=== PATIENT | male | born 1995 | race African-American/Black ===

== ENCOUNTER 2017-01-17 05:48 | Emergency (ER) | payer MEDICAID ==
[~2017-01-17] VITALS: Ht 190.5 cm; Wt 98.0 kg
[2017-01-17 08:07] VITALS: BP 99/48
== END 2017-01-17 08:09 | disposition home or self-care (01) ==
LOC: ED 07:45
DX: S82.54XA Nondisplaced fracture of medial malleolus of right tibia, initial encounter for closed fracture (principal); R07.89 Other chest pain; J45.909 Unspecified asthma, uncomplicated; F17.210 Nicotine dependence, cigarettes, uncomplicated; X58.XXXA Exposure to other specified factors, initial encounter; Y93.89 Activity, other specified; Y92.89 Other specified places as the place of occurrence of the external cause; Y99.8 Other external cause status
CPT/HCPCS: 29515; 71010; 93005; 99284

== ENCOUNTER 2017-01-28 06:01 | Emergency (ER) | payer MEDICAID ==
[~2017-01-28] VITALS: Ht 190.5 cm; Wt 93.9 kg
[2017-01-28] MEDS ORDERED: LIDOCAINE 1%, 20ML ONE (06:28)
[2017-01-28] MEDS ORDERED: LIDOCAINE 1%, 20ML SQ ONE (06:30)
[2017-01-28 08:20] VITALS: BP 132/78
== END 2017-01-28 08:22 | disposition home or self-care (01) ==
LOC: ED 07:01
DX: S91.115A Laceration without foreign body of left lesser toe(s) without damage to nail, initial encounter (principal); L02.612 Cutaneous abscess of left foot; W22.8XXA Striking against or struck by other objects, initial encounter; Y93.89 Activity, other specified; Y92.89 Other specified places as the place of occurrence of the external cause; Y99.8 Other external cause status
CPT/HCPCS: 99283

== ENCOUNTER 2017-10-24 05:47 | Emergency (ER) | payer MEDICAID ==
[~2017-10-24] VITALS: Ht 185.4 cm; Wt 74.0 kg
[2017-10-24 05:48] VITALS: BP 122/82
== END 2017-10-24 06:04 | disposition left against medical advice (07) ==
LOC: ED 05:57
DX: Z00.00 Encounter for general adult medical examination without abnormal findings (principal); Z87.891 Personal history of nicotine dependence; F32.9 Major depressive disorder, single episode, unspecified; F43.10 Post-traumatic stress disorder, unspecified
CPT/HCPCS: 99283

== ENCOUNTER 2018-09-20 11:53 | Emergency (ER) | payer MEDICAID ==
[~2018-09-20] VITALS: Ht 190.5 cm; Wt 85.3 kg
[2018-09-20 12:19] VITALS: BP 130/67
--- NOTE | 2018-09-20 12:32 | NUR ---
TO ROOM 38. SITTER AT BS FOR SAFETY. ROOM SECURED.
--- NOTE | 2018-09-20 12:37 | NUR ---
GOWN GIVEN. ORIENTED TO ROOM. SECURING BELONGINGS.
--- NOTE | 2018-09-20 12:57 | NUR ---
1 BAG OF BELONGINGS INTO LOCKER. ROOM SECURED AT THIS TIME.
[2018-09-20 12:59] LABS: MEAN CORPUSCULAR HGB CONC 31.3 g/dL (33.2-36.2); MEAN CORPUSCULAR VOLUME 70.2 fL (81-97); MEAN PLATELET VOLUME 10.2 fL (7.4-10.4); PLATELET COUNT 293 x10^3/uL (130-400); RED BLOOD COUNT 6.45 x10^6/uL (4.38-5.82); RED CELL DISTRIBUTION WIDTH 14.5 % (9.4-14.8)
--- NOTE | 2018-09-20 12:59 | NUR ---
PT WILL NOT TELL THIS RN WHY HE IS HERE. PT VERY AGGRESSIVE AND HOSTILE TOWARDS STAFF AMANDA WEAVER "ATTITUDE" WHEN PT DOES NOT GET HIS WAY EX:PT WANTING CURTAIN CLOSED AND NOT HAVE A SITTER. PT REMINEDED THAT WE ARE HERE TO HELP THEM AND FACILITATE MEDICAL CARE. PT STILL VERY RUDE TOWARDS RN. PT LET LAB DO LAB DRAW AT THIS TIME. PT IN ROOM AND SECURE AT THIS TIME.
[2018-09-20 13:05] LABS: ALANINE AMINOTRANSFERASE 83 U/L (12-78); ALBUMIN 4.1 g/dL (3.4-5.0); ANION GAP 8 mmol/L (5-15); CALCIUM 8.7 mg/dL (8.5-10.1); CHLORIDE 106 mmol/L (98-107); CREATININE 1.23 mg/dL (0.7-1.3)
[2018-09-20 13:08] LABS: ALKALINE PHOSPHATASE 100 U/L (45-117); BILIRUBIN,TOTAL 1.1 mg/dL (0.2-1.0); TOTAL PROTEIN 8.4 g/dL (6.4-8.2)
[2018-09-20 13:10] LABS: ACETAMINOPHEN < 2 mcg/mL (10-30); SALICYLATE LEVEL < 1.7 mg/dL (2.8-20.0)
--- NOTE | 2018-09-20 13:23 | NUR ---
THROUGHPUT: [facility] NOTIFIED FOR CONSULT, NO ETA PER [facility].
[2018-09-20 13:24] LABS: MD YES
[2018-09-20 13:25] LABS: BASOS#(MANUAL) 0.26 x10^3/uL (0-0.1); BASOS% (MANUAL) 2 % (0-1); LYMPHS% (MANUAL) 13 % (22-44); MONOS#(MANUAL) 0.79 x10^3/uL (0.3-2.7); MONOS% (MANUAL) 6 % (2-9); SEG#(MANUAL) 10.35 x10^3/uL (1.8-6.8); SEGS% (MANUAL) 79 % (42-75)
[2018-09-20 13:26] LABS: <PLATELET ESTIMATE> ADEQUATE; HYPOCHROMIA 1+; LARGE PLATELETS 1+; MICROCYTOSIS 1+
[2018-09-20 13:27] LABS: TARGET CELLS 1+
[2018-09-20 13:28] LABS: GIANT PLATELETS 1+
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
== END 2018-09-20 14:07 | disposition left against medical advice (07) ==
LOC: ED 13:15
DX: F41.1 Generalized anxiety disorder (principal)
CPT/HCPCS: 36415; 80053; 80307; 80329; 85025; 99284; G0480

== ENCOUNTER 2018-09-30 09:16 | Emergency (ER) | payer MEDICAID ==
[~2018-09-30] VITALS: Ht 188 cm; Wt 86.1 kg
[2018-09-30 09:19] VITALS: BP 124/70
--- NOTE | 2018-09-30 09:49 | NUR ---
CALLED PT. FROM LOBBY TO ROOM AND SECURITY REPORTS PT. TOOK OFF RUNNING OFF PROPERTY.
--- NOTE | 2018-09-30 09:50 | NUR ---
PREVIOUS NOTED ENTERED UNDER WRONG USER. THIS RN WROTE NOTE FROM [id number].
[2018-09-30] MEDS ORDERED: LIDOCAINE-MPF 1%, 5ML INFIL ONE (10:00)
== END 2018-09-30 09:52 | disposition left against medical advice (07) ==
LOC: ED 09:46
DX: S61.219A Laceration without foreign body of unspecified finger without damage to nail, initial encounter (principal); Z53.21 Procedure and treatment not carried out due to patient leaving prior to being seen by health care provider; X58.XXXA Exposure to other specified factors, initial encounter; Y93.89 Activity, other specified; Y92.89 Other specified places as the place of occurrence of the external cause; Y99.8 Other external cause status

== ENCOUNTER 2018-12-27 19:16 | Emergency (ER) | payer MEDICAID ==
[~2018-12-27] VITALS: Ht 188 cm; Wt 92.9 kg
[2018-12-27 19:28] VITALS: BP 143/57
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
[2018-12-27] MEDS ORDERED: AMOXICILLIN/CLAV 875-125MG TABLET PO STA (20:10)
[2018-12-27] MEDS ORDERED: AMOXICILLIN/CLAV 875-125MG TABLET ONE (20:19)
[2018-12-27] MEDS ORDERED: DIPH,PERTUSS(ACELL),TET VAC/PF 0.5 ML IM-VACC ONE ×2 (20:20→20:30)
== END 2018-12-27 20:34 | disposition home or self-care (01) ==
LOC: ED 20:28
DX: S60.571A Other superficial bite of hand of right hand, initial encounter (principal); S60.511A Abrasion of right hand, initial encounter; F17.200 Nicotine dependence, unspecified, uncomplicated; W54.0XXA Bitten by dog, initial encounter; Y93.89 Activity, other specified; Y92.89 Other specified places as the place of occurrence of the external cause; Y99.8 Other external cause status
CPT/HCPCS: 29125; 90471; 90715

== ENCOUNTER 2018-12-28 10:32 | Emergency (ER) | payer MEDICAID ==
[~2018-12-28] VITALS: Ht 190.5 cm; Wt 92.0 kg
[2018-12-28 10:48] VITALS: BP 111/59
[2018-12-28] MEDS ORDERED: DIPH,PERTUSS(ACELL),TET VAC/PF 0.5 ML IM-VACC ONE (11:00)
[2018-12-28] MEDS ORDERED: LIDOCAINE-MPF 1%, 5ML INFIL ONE (11:00)
--- NOTE | 2018-12-28 11:47 | NUR ---
LUNCH RN: [facility]SB[facility] CHECKED 139, MY UPDATED. PT TO BE DCd
[2018-12-28] MEDS ORDERED: BACITRACIN ZINC OINT 500U/GM, 0.9 GM ONE (11:57)
== END 2018-12-28 12:57 | disposition home or self-care (01) ==
LOC: ED 11:51
DX: S61.451A Open bite of right hand, initial encounter (principal); F17.200 Nicotine dependence, unspecified, uncomplicated; W54.0XXA Bitten by dog, initial encounter; Y93.89 Activity, other specified; Y92.410 Unspecified street and highway as the place of occurrence of the external cause; Y99.8 Other external cause status
CPT/HCPCS: 99283

== ENCOUNTER 2019-01-01 14:44 | Observation (INO) | payer MEDICAID ==
[~2019-01-01] VITALS: Ht 190.5 cm; Wt 89.3 kg
[2019-01-01 15:04] LABS: MEAN CORPUSCULAR HEMOGLOBIN 22.8 pg (27.5-34.5); MEAN CORPUSCULAR HGB CONC 30.9 g/dL (33.2-36.2); MEAN CORPUSCULAR VOLUME 73.8 fL (81-97); MEAN PLATELET VOLUME 9.8 fL (7.4-10.4); PLATELET COUNT 227 x10^3/uL (130-400); RED CELL DISTRIBUTION WIDTH 15.2 % (9.4-14.8)
[2019-01-01 15:11] LABS: ALBUMIN 4.2 g/dL (3.4-5.0); ANION GAP 7 mmol/L (5-15); CALCIUM 8.8 mg/dL (8.5-10.1); CHLORIDE 112 mmol/L (98-107)
[2019-01-01 15:14] LABS: ALANINE AMINOTRANSFERASE 50 U/L (12-78); ALKALINE PHOSPHATASE 58 U/L (45-117); BILIRUBIN,TOTAL 1.1 mg/dL (0.2-1.0); CREATININE 1.06 mg/dL (0.7-1.3); SALICYLATE LEVEL < 1.7 mg/dL (2.8-20.0); TOTAL PROTEIN 7.9 g/dL (6.4-8.2)
[2019-01-01] MEDS ORDERED: LORazepam 1MG TABLET ONE (15:28)
[2019-01-01] MEDS ORDERED: ZIPRASIDONE 40MG CAPSULE PO ONE (15:30)
[2019-01-01] MEDS ORDERED: LORazepam 1MG TABLET PO ONE (15:30)
[2019-01-01 16:06] LABS: AMPHETAMINE SCREEN, URINE Positive (Negative); BARBITURATE SCREEN, URINE Negative (Negative); BENZODIAZEPINE SCREEN, URINE Negative (Negative); CANNABINOID SCREEN, URINE Negative (Negative); COCAINE SCREEN, URINE Negative (Negative); METHADONE SCREEN, URINE Negative (Negative); OPIATE SCREEN, URINE Negative (Negative)
--- NOTE | 2019-01-01 16:25 | NUR ---
[facility] ASSESSMENT COMPLETED ON PT, PT TO BE PLACED ON LEGAL HOLD. PT TRANSFERRED TO ROOM 38 FOR SECURE ROOM AND SITTER. CHART REVIEWED, ASSUME CARE OF PT AT THIS TIME.
[2019-01-01 16:34] LABS: BASOPHILS # (AUTO) 0.04 x10^3/uL (0-0.1); BASOPHILS % (AUTO) 1 % (0-1); EOSINOPHILS % (AUTO) 1 % (1-7); LYMPHOCYTES # (AUTO) 1.55 x10^3/uL (1-3.4); LYMPHOCYTES % (AUTO) 21 % (22-44); MD MORPH REVIEW ONLY; MONOCYTES # (AUTO) 0.87 x10^3/uL (0.2-0.8); MONOCYTES % (AUTO) 12 % (2-9); NEUTROPHILS # (AUTO) 4.84 x10^3/uL (1.8-6.8); NEUTROPHILS % (AUTO) 65 % (42-75)
[2019-01-01 16:35] LABS: ANISOCYTOSIS 1+; HYPOCHROMIA 2+; MICROCYTOSIS 1+
[2019-01-01 16:36] LABS: <PLATELET ESTIMATE> ADEQUATE; <PLT MORPHOLOGY> NORMAL PLT MORPH
--- NOTE | 2019-01-01 17:32 | NUR ---
PT PROVIDED MEAL TRAY. SITTER AT DOORWAY FOR CLOSE OBS.
[2019-01-01 18:14] LABS: MICROSCOPIC NOT IND
[2019-01-01 18:24] LABS: CULTURE INDICATED? NO
--- NOTE | 2019-01-01 18:41 | NUR ---
PACKET FAXED TO [facility], [facility] AND [facility]
--- NOTE | 2019-01-01 18:50 | NUR ---
PT CALM, COOPERATIVE AT THIS TIME. SITTER AT DOORWAY.
--- NOTE | 2019-01-01 19:23 | NUR ---
PT GIVEN SNACK ON REQUEST, UPDATED ON POC. SITTER AT DOORWAY.
--- NOTE | 2019-01-01 20:20 | NUR ---
PT RESTING QUIETLY, NAD. SITTER AT DOORWAY. CONTINUE TO AWAIT PLACEMENT.
--- NOTE | 2019-01-01 21:05 | NUR ---
Received report from Katherine Garcia RN. Pt resting in bed in nad being observed by cecile.
--- NOTE | 2019-01-01 21:11 | NUR ---
REPORT TO LUIS ALBERTO CARNEY, TRANSFER OF CARE AT THIS TIME. PT WITH ONE BELONGING BAG, LABELED AND PUT IN SECURE LOCKER.
--- NOTE | 2019-01-01 22:26 | NUR ---
REPORT TO EDOUARD CARNEY.
--- NOTE | 2019-01-01 22:49 | NUR ---
ASSUMED CARE OF PATIENT. REPORT GIVEN FROM ROMMEL SAHU 2N HAS ASSESSED PATIENT. PATIENT TO BE AN ADMIT
[2019-01-01] MEDS ORDERED: ZIPRASIDONE 20MG CAPSULE PO PRN (23:30)
[2019-01-01] MEDS ORDERED: POLYETHYLENE GLYCOL 17 GM PACKET PO PRN (23:30)
[2019-01-01] MEDS ORDERED: BENZTROPINE 1 MG TABLET PO PRN (23:30)
[2019-01-01] MEDS ORDERED: MELATONIN 3 MG TABLET PO SCH (23:30)
[2019-01-01] MEDS ORDERED: ACETAMINOPHEN 325 MG TABLET PO PRN (23:30)
[2019-01-01] MEDS ORDERED: BISACODYL 10 MG SUPP PR PRN (23:30)
[2019-01-01] MEDS ORDERED: ONDANSETRON ODT 4 MG PO PRN (23:30)
[2019-01-02 00:04] VITALS: BP 109/67
[2019-01-02] MEDS ORDERED: QUETIAPINE 100MG TABLET ONE (04:43)
[2019-01-02] MEDS ORDERED: QUETIAPINE 100MG TABLET PO PRN (05:00)
[2019-01-02 07:48] VITALS: BP 128/88
[2019-01-02] MEDS ORDERED: SENNA/DOCUSATE TABLET PO SCH (09:00)
== END 2019-01-02 09:51 ==
LOC: ED 16:33 → EDIP 22:21 → INTOOBSV 22:21 → 2N 23:13
PROVIDERS: ADMIT Family Medicine; ATTEND Family Medicine
DX: F22 Delusional disorders (principal); D50.9 Iron deficiency anemia, unspecified; F31.9 Bipolar disorder, unspecified; F43.10 Post-traumatic stress disorder, unspecified; J45.909 Unspecified asthma, uncomplicated; F17.210 Nicotine dependence, cigarettes, uncomplicated; Z91.19 Patient's noncompliance with other medical treatment and regimen
CPT/HCPCS: 36415; 80053; 80307; 81003; 82607; 82728; 82962; 83540; 83550; 85025; 99285; G0378

== ENCOUNTER 2019-01-12 13:29 | Emergency (ER) | payer MEDICAID ==
[~2019-01-12] VITALS: Ht 182.9 cm; Wt 95.0 kg
[2019-01-12 13:40] VITALS: BP 145/85
[2019-01-12] MEDS ORDERED: LIDOCAINE-MPF 1%, 2ML ONE (13:56)
[2019-01-12] MEDS ORDERED: LIDOCAINE-MPF 1%, 5ML INFIL ONE (14:00)
--- NOTE | 2019-01-12 14:06 | NUR ---
I&D completed. pt tolerated procedure well.
== END 2019-01-12 14:20 | disposition home or self-care (01) ==
LOC: ED 14:00
DX: L02.213 Cutaneous abscess of chest wall (principal); F32.9 Major depressive disorder, single episode, unspecified; J45.909 Unspecified asthma, uncomplicated; F43.10 Post-traumatic stress disorder, unspecified; F17.200 Nicotine dependence, unspecified, uncomplicated
CPT/HCPCS: 10060; 99283

== ENCOUNTER 2019-01-15 20:19 | Emergency (ER) | payer MEDICAID ==
[~2019-01-15] VITALS: Ht 190.5 cm; Wt 93.0 kg
[2019-01-15 20:25] VITALS: BP 114/57
[2019-01-15] MEDS ORDERED: SULFAMETH./TRIMETHOPRIM DS 800MG/160MG TABLET PO ONE (21:00)
== END 2019-01-15 21:05 | disposition home or self-care (01) ==
LOC: ED 20:59
DX: L02.213 Cutaneous abscess of chest wall (principal); F41.1 Generalized anxiety disorder; F32.9 Major depressive disorder, single episode, unspecified
CPT/HCPCS: 99283

== ENCOUNTER 2019-02-17 04:58 | Inpatient (IN) | payer MEDICAID ==
[~2019-02-17] VITALS: Ht 175.3 cm; Wt 86.3 kg
--- NOTE | 2019-02-17 05:13 | NUR ---
PT STATES HE WOKE UP THIS MORNING AND HIS EYE WAS SWOLLEN SHUT. PT DENIES ANY TRAUMA. VISIBLE SWELLING OF RIGHT ORBIT OBSERVED IN TRIAGE. PER TRIAGE NOTE
[2019-02-17] MEDS ORDERED: FLUORESCEIN OPHTHALMIC 1 MG STRIP EACHEYE ONE (05:30)
[2019-02-17] MEDS ORDERED: SODIUM CHLORIDE FLUSH 10ML SYR IVF ONE (05:30)
--- NOTE | 2019-02-17 05:43 | NUR ---
EXTREMELY SWOLLEN [place]ERICK ORBITAL EDEMA NOTED IV WAS STARTEDFOR CT CONTRANST
--- NOTE | 2019-02-17 06:01 | NUR ---
MOVED PT TO REG RM FOR CT
[2019-02-17 06:14] LABS: BASOPHILS # (AUTO) 0.02 x10^3/uL (0-0.1); BASOPHILS % (AUTO) 0 % (0-1); EOSINOPHILS # (AUTO) 0.42 x10^3/uL (0-0.4); EOSINOPHILS % (AUTO) 4 % (1-7); LYMPHOCYTES # (AUTO) 1.13 x10^3/uL (1-3.4); LYMPHOCYTES % (AUTO) 11 % (22-44); MD NO; MEAN CORPUSCULAR HEMOGLOBIN 22.9 pg (27.5-34.5); MEAN CORPUSCULAR HGB CONC 31.2 g/dL (33.2-36.2); MEAN CORPUSCULAR VOLUME 73.4 fL (81-97); MEAN PLATELET VOLUME 10.3 fL (7.4-10.4); MONOCYTES # (AUTO) 0.68 x10^3/uL (0.2-0.8); MONOCYTES % (AUTO) 7 % (2-9); NEUTROPHILS # (AUTO) 8.19 x10^3/uL (1.8-6.8); NEUTROPHILS % (AUTO) 79 % (42-75); PLATELET COUNT 290 x10^3/uL (130-400); RED BLOOD COUNT 5.82 x10^6/uL (4.38-5.82); RED CELL DISTRIBUTION WIDTH 14.4 % (9.4-14.8)
[2019-02-17 06:24] LABS: ALBUMIN 3.2 g/dL (3.4-5.0); ANION GAP 9 mmol/L (5-15); CALCIUM 8.6 mg/dL (8.5-10.1); CHLORIDE 106 mmol/L (98-107); CREATININE 0.98 mg/dL (0.7-1.3)
[2019-02-17] MEDS ORDERED: OMNIPAQUE 350 MG/ML, 100ML BOTTLE ONE (06:35)
--- NOTE | 2019-02-17 07:00 | NUR ---
Report from Tello RN Patient resting comfortably in bed. Continued significant eye swelling/ with yellowish drainage Minimal eye exam tolerated by patient (sceral reddened, pupil reactive, able to move eye in all 4 quadrants) Updated estimated poc
[2019-02-17] MEDS ORDERED: IBUPROFEN 800 MG TABLET ONE (07:54)
--- NOTE | 2019-02-17 07:55 | NUR ---
Breakfast tray ordered for patient Medicated per [facility]
[2019-02-17] MEDS ORDERED: AMPICILLIN/SULBACTAM 3 GM in SODIUM CHLORIDE 0.9% 100 ML IV ONE (08:00)
[2019-02-17] MEDS: SODIUM CHLORIDE 0.9% 1,000 ML IV SCH (08:28)
[2019-02-17] MEDS ORDERED: ACETAMINOPHEN 325 MG TABLET PO PRN (08:30)
[2019-02-17] MEDS ORDERED: KETOROLAC 30 MG/1 ML IV PRN (08:30)
[2019-02-17] MEDS ORDERED: IBUPROFEN 800 MG TABLET PO ONE (08:30)
[2019-02-17] MEDS ORDERED: ONDANSETRON 2MG/ML, 2ML IVPush PRN (08:30)
[2019-02-17] MEDS ORDERED: VANCOMYCIN PER PHARMACY MC PRN (08:30)
[2019-02-17] MEDS ORDERED: ONDANSETRON ODT 4 MG PO PRN (08:30)
[2019-02-17] MEDS ORDERED: AZITHROMYCIN 500 MG TABLET PO ONE (09:00)
[2019-02-17] MEDS ORDERED: CEFTRIAXONE 250 MG IM ONE (09:00)
[2019-02-17] MEDS: PLEASE ENTER WEIGHT MC SCH ×2 (09:00→16:49)
--- NOTE | 2019-02-17 09:06 | NUR ---
PATIENT ATE ALL OF BREAKFAST ABX COMPLETE, MAINT IVF INFUSING PATIENT REPORTS EYE PAIN IMPROVED TO 5/10
[2019-02-17] MEDS: [UNRECOGNIZED DRUG - REMARK] MC SCH ×2 (09:30→16:50)
[2019-02-17 09:35] VITALS: BP 100/51
[2019-02-17] MEDS ORDERED: CEFTRIAXONE 250 MG in SODIUM CHLORIDE 0.9% 50 ML IV ONE (11:30)
[2019-02-17] MEDS: NICOTINE 7 MG/24 HR PATCH.TD24 TD SCH (11:54)
[2019-02-17] MEDS: VANCOMYCIN 1,900 MG in SODIUM CHLORIDE 0.9% 250 ML IV SCH ×2 (12:27→20:40)
[2019-02-17] MEDS ORDERED: PHARMACOKINETIC MONITORING MC PRN (12:30)
[2019-02-17 14:00] VITALS: BP 105/55
[2019-02-17] MEDS: AMPICILLIN/SULBACTAM 3 GM in SODIUM CHLORIDE 0.9% 100 ML IV SCH ×2 (14:00→19:30)
[2019-02-17 19:16] VITALS: BP 123/82
[2019-02-17 23:00] LABS: AMPHETAMINE SCREEN, URINE Positive (Negative); BARBITURATE SCREEN, URINE Negative (Negative); BENZODIAZEPINE SCREEN, URINE Negative (Negative); CANNABINOID SCREEN, URINE Positive (Negative); COCAINE SCREEN, URINE Negative (Negative); METHADONE SCREEN, URINE Negative (Negative); OPIATE SCREEN, URINE Negative (Negative)
[2019-02-18] MEDS: PLEASE ENTER WEIGHT MC SCH ×2 (00:52→09:00)
[2019-02-18] MEDS: [UNRECOGNIZED DRUG - REMARK] MC SCH ×2 (00:52→09:30)
[2019-02-18] MEDS: AMPICILLIN/SULBACTAM 3 GM in SODIUM CHLORIDE 0.9% 100 ML IV SCH ×2 (01:50→08:00)
[2019-02-18 02:23] VITALS: BP 113/59
[2019-02-18] MEDS: VANCOMYCIN 1,900 MG in SODIUM CHLORIDE 0.9% 250 ML IV SCH (04:22)
[2019-02-18] MEDS: SODIUM CHLORIDE 0.9% 1,000 ML IV SCH (04:25)
[2019-02-18 05:48] LABS: CHLORIDE 110 mmol/L (98-107)
[2019-02-18 05:49] LABS: MEAN CORPUSCULAR HEMOGLOBIN 22.8 pg (27.5-34.5); MEAN CORPUSCULAR HGB CONC 30.6 g/dL (33.2-36.2); MEAN CORPUSCULAR VOLUME 74.4 fL (81-97); MEAN PLATELET VOLUME 10.8 fL (7.4-10.4); PLATELET COUNT 286 x10^3/uL (130-400); RED BLOOD COUNT 5.96 x10^6/uL (4.38-5.82); RED CELL DISTRIBUTION WIDTH 14.8 % (9.4-14.8)
[2019-02-18 05:54] LABS: ALANINE AMINOTRANSFERASE 12 U/L (12-78); ALBUMIN 2.8 g/dL (3.4-5.0); ALKALINE PHOSPHATASE 78 U/L (45-117); BILIRUBIN,TOTAL 0.6 mg/dL (0.2-1.0); CALCIUM 8.2 mg/dL (8.5-10.1); CREATININE 0.85 mg/dL (0.7-1.3); TOTAL PROTEIN 6.5 g/dL (6.4-8.2)
[2019-02-18 06:12] LABS: BASOPHILS # (AUTO) 0.04 x10^3/uL (0-0.1); BASOPHILS % (AUTO) 0 % (0-1); EOSINOPHILS # (AUTO) 0.62 x10^3/uL (0-0.4); EOSINOPHILS % (AUTO) 6 % (1-7); LYMPHOCYTES # (AUTO) 1.54 x10^3/uL (1-3.4); LYMPHOCYTES % (AUTO) 16 % (22-44); MD SCAN; MONOCYTES # (AUTO) 0.94 x10^3/uL (0.2-0.8); MONOCYTES % (AUTO) 10 % (2-9); NEUTROPHILS # (AUTO) 6.67 x10^3/uL (1.8-6.8); NEUTROPHILS % (AUTO) 68 % (42-75)
[2019-02-18 06:17] LABS: ANION GAP 7 mmol/L (5-15)
[2019-02-18 08:00] VITALS: BP 112/62
[2019-02-18] MEDS ORDERED: CEFTRIAXONE PMX 1GM/50ML 50 ML IV SCH ×2 (08:00)
[2019-02-18] MEDS: CIPROFLOXACIN OPHTH SOLN 0.3%, 5ML RIGHTEYE SCH ×6 (10:00→18:00)
[2019-02-18] MEDS: NICOTINE 7 MG/24 HR PATCH.TD24 TD SCH (10:56)
[2019-02-18 14:04] VITALS: BP 110/62
== END 2019-02-18 18:38 | disposition left against medical advice (07) | DRG 603 ==
LOC: ED 07:09 → EDIP 08:03 → 3NE 08:32
PROVIDERS: ADMIT Internal Medicine; ATTEND Internal Medicine
DX: L03.213 Periorbital cellulitis (principal); A54.31 Gonococcal conjunctivitis; Z53.21 Procedure and treatment not carried out due to patient leaving prior to being seen by health care provider; J45.909 Unspecified asthma, uncomplicated; Z59.0 Homelessness; D72.829 Elevated white blood cell count, unspecified; F17.200 Nicotine dependence, unspecified, uncomplicated
CPT/HCPCS: 36415; 70481; 80048; 80053; 80074; 80307; 82040; 82728; 83540; 83550; 84439; 84443; 84466; 85025; 86592; 87070; 87077; 87205; 87491; 87591; 87806; 96365; G0378; J0295; J0696; J1885; J3370; Q9967; G0475; J7030; J7050

== ENCOUNTER 2019-02-19 05:33 | Emergency (ER) | payer MEDICAID ==
[~2019-02-19] VITALS: Ht 188 cm; Wt 86.5 kg
[2019-02-19 09:03] VITALS: BP 110/64
== END 2019-02-19 09:27 | disposition home or self-care (01) ==
LOC: ED 05:46
DX: H10.021 Other mucopurulent conjunctivitis, right eye (principal); A54.31 Gonococcal conjunctivitis; L03.213 Periorbital cellulitis; J45.909 Unspecified asthma, uncomplicated; F43.10 Post-traumatic stress disorder, unspecified; F41.1 Generalized anxiety disorder; F32.9 Major depressive disorder, single episode, unspecified
CPT/HCPCS: 36415; 70481; 80048; 82040; 85025; 96365; 99284; J0696; Q9967; 96374